=== PATIENT | female | born 1970 | race Two or more races ===

== ENCOUNTER 2022-03-22 06:48 | Inpatient (IN) | payer OTHER, MEDICARE, MEDICAID ==
[~2022-03-22] VITALS: Ht 149.9 cm; Wt 53.9 kg
[2022-03-22] MEDS ORDERED: SODIUM CHLORIDE 0.9% 1,000 ML IV ONE (07:30)
[2022-03-22 07:48] LABS: Basophils # (auto) 0 10 ^3/uL (0-0.2); Basophils % (auto) 0.4 % (0.0-2.0); Eosinophils # (auto) 0 10 ^3/uL (0-0.8); Eosinophils % (auto) 0.6 % (0.0-7.0); Hematocrit 39.5 % (36.0-46.0); Hemoglobin 12.7 g/dL (12.2-16.2); Lymphocytes % (auto) 15.1 % (10.0-50.0); Mean Corpuscular Hemoglobin 29.4 pg (28.0-32.0); Mean Corpuscular Hgb Conc. 32.2 g/dL (32.0-36.0); Mean Corpuscular Volume 91.4 fL (80.0-100.0); Monocytes # (auto) 0.7 10 ^3/uL (0-1.3); Monocytes % (auto) 10.9 % (0.0-12.0); Neutrophils # (auto) 4.7 10 ^3/uL (1.6-8.6); Nucleated Red Blood Cells % 0.1 %; Red Blood Cells 4.32 10^6/uL (4.0-5.20); Red Cell Distribution Width 14.9 % (11.8-14.3); White Blood Cell 6.4 10^3/uL (4.4-10.8)
[2022-03-22 09:08] LABS: Albumin 3.1 g/dL (3.4-5.0); BUN/Creatinine Ratio 12.1; Bilirubin, Total 1.2 mg/dL (0.2-1.0); Calcium 8.6 mg/dL (8.5-10.1); Potassium 4.5 mmol/L (3.5-5.1); Total Protein 7.7 g/dL (6.4-8.2)
[2022-03-22] MEDS ORDERED: HYDROmorphone HCL 2 MG/ML VL/or syr IV ONE ×3 (11:45→12:30)
[2022-03-22] MEDS ORDERED: SODIUM CHLORIDE 0.9% 500 ML IV ONE (11:45)
[2022-03-22] MEDS ORDERED: ONDANSETRON HCL 4 MG/2 ML VIAL IV ONE (11:45)
[2022-03-22 12:20] LABS: Urine Bacteria NONE SEEN /hpf (None Seen); Urine Blood 1+ /uL (Negative); Urine Mucus FEW (None Seen); Urine Specific Gravity 1.014 (1.001-1.035); Urine WBC 2 /hpf (0 - 5)
[2022-03-22] MEDS ORDERED: ACETAMINOPHEN 325 MG TAB PO PRN (12:30)
[2022-03-22 13:38] LABS: Amphetamine Screen, Urine NEGATIVE (NEGATIVE); Barbiturate Scree,Urine NEGATIVE (NEGATIVE); Benzodiazephine Screen, Urine NEGATIVE (NEGATIVE); Cannabinoid Screen, Urine NEGATIVE (NEGATIVE); Cocaine Screen, Urine NEGATIVE (NEGATIVE); Opiate Scree,Urine POSITIVE (NEGATIVE); Phencyclidine Screen, Urine NEGATIVE (NEGATIVE)
[2022-03-22] MEDS: SODIUM CHLORIDE 0.9% 1,000 ML IV SCH (13:56)
[2022-03-22 15:00] VITALS: BP 126/87
[2022-03-22 15:02] VITALS: BP 126/87
[2022-03-22 16:10] LABS: INR 1.14 (0.9-1.15)
[2022-03-22] MEDS ORDERED: AMIT25TA12 PO (16:44)
[2022-03-22] MEDS ORDERED: HYDR8TAB46 PO (16:58)
[2022-03-22] MEDS ORDERED: FOLI1TAB6 PO (16:58)
[2022-03-22] MEDS ORDERED: LORA-655 PO (16:58)
[2022-03-22] MEDS ORDERED: GABA300C10 PO (16:58)
[2022-03-22] MEDS ORDERED: FLUO-125 PO (16:58)
[2022-03-22] MEDS ORDERED: ONDA-180 PO (16:58)
[2022-03-22] MEDS ORDERED: BACL10TA PO (16:58)
[2022-03-22] MEDS ORDERED: TRAZ-181 PO (16:58)
[2022-03-22] MEDS ORDERED: SENN1TAB14 PO (16:58)
[2022-03-22] MEDS ORDERED: POLY33504 PO (16:58)
[2022-03-22] MEDS ORDERED: METH10T PO (16:58)
[2022-03-22] MEDS ORDERED: METHADONE HCL 10 MG TAB PO SCH ×2 (17:45→22:00)
[2022-03-22] MEDS ORDERED: SENNA 8.6 MG TAB PO PRN (17:45)
[2022-03-22] MEDS ORDERED: AMITRIPTYLINE HCL 25 MG TAB PO PRN ×2 (17:45→19:00)
[2022-03-22] MEDS ORDERED: GABAPENTIN 300 MG CAP PO SCH ×2 (17:45→22:00)
[2022-03-22] MEDS ORDERED: BACLOFEN 10 MG TAB PO PRN (17:45)
[2022-03-22] MEDS ORDERED: AMIT75TA4 PO (18:28)
[2022-03-22] MEDS ORDERED: FLUO60TA PO (18:28)
[2022-03-22] MEDS ORDERED: SENN-136 PO (18:36)
[2022-03-22] MEDS: LORazepam 0.5 MG TAB PO SCH ×2 (18:59→22:00)
[2022-03-22] MEDS: BACLOFEN 10 MG TAB PO SCH (21:46)
[2022-03-22 22:00] VITALS: BP 114/69
[2022-03-22] MEDS ORDERED: traZODone HCL 50 MG TAB PO SCH (22:00)
[2022-03-22] MEDS ORDERED: ONDANSETRON ODT 4 MG TAB PO SCH (22:00)
[2022-03-22] MEDS ORDERED: SENNA PLUS PO SCH (22:00)
[2022-03-23 05:00] VITALS: BP 132/86
[2022-03-23 05:24] LABS: Basophils # (auto) 0 10 ^3/uL (0-0.2); Basophils % (auto) 0.6 % (0.0-2.0); Eosinophils # (auto) 0.4 10 ^3/uL (0-0.8); Eosinophils % (auto) 7.1 % (0.0-7.0); Hematocrit 36.7 % (36.0-46.0); Hemoglobin 11.9 g/dL (12.2-16.2); Lymphocytes # (auto) 1.6 10 ^3/uL (0.4-5.4); Lymphocytes % (auto) 30.4 % (10.0-50.0); Mean Corpuscular Hemoglobin 29.8 pg (28.0-32.0); Mean Corpuscular Hgb Conc. 32.5 g/dL (32.0-36.0); Mean Corpuscular Volume 91.6 fL (80.0-100.0); Monocytes # (auto) 0.6 10 ^3/uL (0-1.3); Monocytes % (auto) 10.8 % (0.0-12.0); Neutrophils # (auto) 2.6 10 ^3/uL (1.6-8.6); Neutrophils % (auto) 51.1 % (37.0-80.0); Nucleated Red Blood Cells % 0.2 %; Red Cell Distribution Width 15.3 % (11.8-14.3); White Blood Cell 5.1 10^3/uL (4.4-10.8)
[2022-03-23 05:39] LABS: Albumin 2.6 g/dL (3.4-5.0)
[2022-03-23 05:42] LABS: BUN/Creatinine Ratio 11.9
[2022-03-23 05:44] LABS: Bilirubin, Total 0.5 mg/dL (0.2-1.0); Total Protein 7.2 g/dL (6.4-8.2)
[2022-03-23 06:21] LABS: Potassium 4.1 mmol/L (3.5-5.1)
[2022-03-23] MEDS: SODIUM CHLORIDE 0.9% 1,000 ML IV SCH (06:49)
[2022-03-23] MEDS: LORazepam 0.5 MG TAB PO SCH ×2 (06:53→12:32)
[2022-03-23] MEDS ORDERED: GABAPENTIN 300 MG CAP PO SCH ×2 (08:00→12:00)
[2022-03-23] MEDS ORDERED: METHADONE HCL 10 MG TAB PO SCH ×2 (08:00→12:00)
[2022-03-23] MEDS ORDERED: HYDR8TAB46 PO (08:10)
[2022-03-23 09:00] VITALS: BP 124/83
[2022-03-23] MEDS ORDERED: FLUoxetine HCL 20 MG CAP PO SCH (10:00)
[2022-03-23] MEDS ORDERED: FOLIC ACID 1 MG TAB PO SCH (10:00)
[2022-03-23] MEDS ORDERED: ENOXAPARIN SOD 40 MG/0.4 ML SYRINGE SC SCH (10:00)
[2022-03-23] MEDS ORDERED: POLYETHYLENE GLYCOL 17 GM PWDR PO SCH (10:00)
[2022-03-23] MEDS: BACLOFEN 10 MG TAB PO SCH (10:52)
== END 2022-03-23 14:00 | disposition left against medical advice (07) | DRG 948 ==
LOC: ER 06:48 → OVERFLOW 12:27 → CENTRAL 14:49
PROVIDERS: ADMIT Nurse Practitioner Family; ATTEND Student in an Organized Health Care Education/Training Program
DX: G89.3 Neoplasm related pain (acute) (chronic) (principal); C56.9 Malignant neoplasm of unspecified ovary; C79.31 Secondary malignant neoplasm of brain; E46 Unspecified protein-calorie malnutrition; C79.51 Secondary malignant neoplasm of bone; Z53.29 Procedure and treatment not carried out because of patient's decision for other reasons; R74.8 Abnormal levels of other serum enzymes; Z92.21 Personal history of antineoplastic chemotherapy; Z68.24 Body mass index [BMI] 24.0-24.9, adult; Z85.43 Personal history of malignant neoplasm of ovary; Z20.822 Contact with and (suspected) exposure to COVID-19
CPT/HCPCS: 36415; 71045; 80053; 80307; 81001; 83880; 84484; 85025; 85610; 87426; 93005; 93970; 96361; 96374; 96375; 96376; 97163; G0378; J2405; Q0162